=== PATIENT | female | born 1985 | race Hispanic/Latino ===

== ENCOUNTER 2016-06-07 16:13 | Emergency (ER) | payer OTHER ==
[~2016-06-07 16:13] MED LIST: BENA25CA2 PO; PERC5TAB6 PO; no home meds
[2016-06-07] MEDS ORDERED: ACETAMINOPHEN 325 MG TAB As Ordered ONE (18:42)
[2016-06-07] MEDS ORDERED: IBUPROFEN 800 MG TAB As Ordered ONE (18:43)
--- NOTE | 2016-06-07 19:47 | EDDOCDS ---
Physician Documentation [facility] Name: Aide Delgadillo Age: 30 yrs Sex: Female : 1985 Arrival Date: 06/07/2016 Time: 16:13 Bed PD Private MD: Raul Rodriguez Disposition: 06/07/16 19:33 Discharged to Home/Self Care. Impression: Influenza due to other identified influenza virus with other respiratory manifestations - montserrat Salgado - Condition is Stable. - Discharge Instructions: Influenza, Adult, Upper Respiratory Infection, Adult. - Medication Reconciliation, Local Pharmacy Hours form. - Follow up: Raul Rodriguez; When: Call to arrange an appointment; Reason: Recheck today's complaints, Continuance of care. - Problem is new. - Symptoms are unchanged. Historical: - Allergies: No known drug Allergies; - Home Meds: 1. none - PMHx: none; - PSHx: Appendectomy; - Social history: Smoking status: Patient states was never smoker of tobacco. No barriers to communication noted, The patient speaks fluent Malaysian. - Family history: Not pertinent. - : The pt / caregiver states he / she is not on anticoagulants. Home medication list is obtained from the patient. - Exposure Risk Screening:: None identified. 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 2 in. (157.48 cm); Pain 5/10; 18:45 Temp 102(TE); lr2 19:43 BP 108 / 73; Pulse 91; Resp 20; Temp 100.5(O); Pulse Ox 96% on R/A; Pain 3/10; mcp 16:15 Body Mass Index 25.61 (63.50 kg, 157.48 cm) gr2 MDM: 16:47 Strep Screen, Nursing ordered. ef1 16:47 Acetaminophen Tablet 650 mg PO once ordered. ef1 16:47 Ibuprofen 800 mg PO once ordered. ef1 18:39 Obtain sample by nasopharyngeal swab ordered. ms18 18:40 -Influenza A&B Rapid Antigen - Nose Ordered. EDMS 18:53 GATS (NEGATIVE STREP SCREEN) Ordered. EDMS 19:29 -Influenza A&B Rapid Antigen - Nose Reviewed. mo1 19:31 Financial registration complete. ks16 19:33 [facility] Payment Agreement was scanned into [employer] and attached to record. ks16 Administered Medications: 18:47 Drug: Ibuprofen 800 mg [ibuprofen 800 mg tablet (1 tabs)] Route: PO; ms18 18:48 Drug: Acetaminophen 650 mg [acetaminophen 325 mg tablet (2 tabs)] Route: PO; ms18 Signatures: Dispatcher [employer] EDMS Yareli Carlson RN RN kcs Peters, Mary, RN RN mcp Feola, Erica PACarlC PA-C ef1 Eagle Friedman PA PA mo1 Lina Felton RN RN ms18 Lenka Olsen, Reg Reg ks16 The chart was reviewed and I authenticate all verbal orders and agree with the evaluation and treatment provided.Corrections: (The following items were deleted from the chart) 19:09 16:47 Fluid Challenge ordered. ef1 mo1 Attachments: 19:33 [facility] Payment Agreement ks16 MTDD
--- NOTE | 2016-06-07 19:47 | EDDOCDS ---
Nurse's Notes [facility] Name: Aide Delgadillo Age: 30 yrs Sex: Female : 1985 Arrival Date: 06/07/2016 Time: 16:13 Bed PD Private MD: Raul Rodriguez Diagnosis: Influenza due to other identified influenza virus with other respiratory manifestations-montserrat Fitzpatrick Presentation: 06/07 16:26 Presenting complaint: Patient states: since Monday she has not felt good - temp of 104 kcs on Monday - has had a fever on and off since - now with headache, dizziness, body aches, cough and chils. Adult Sepsis Screening: The patient does not have new or worsening altered mentation. Patient's respiratory rate is less than 22. Systolic blood pressure is greater than 100. Patient has a qSOFA score of 0- Negative Sepsis Screen. Suicide/Homicide risk assessment- the patient denies having any suicidal and/or homicidal ideations and does not present with any other emotional, behavioral or mental health complaints. Status: The patient is a dependent. Transition of care: patient was not received from another setting of care. 16:26 Acuity: ALEKSANDR Level 4 kcs 16:26 Method Of Arrival: Walkin/Carried/Asstd kcs Triage Assessment: 16:28 General: Appears comfortable, well developed, well nourished, well groomed, Behavior is kcs cooperative, pleasant. Pain: Location: headache Pain currently is 10 out of 10 on a pain scale. Pt Declines HIV testing. Neurological: Level of Consciousness is awake, alert. Respiratory: Airway is patent Respiratory effort is even, unlabored, Respiratory pattern is regular, symmetrical. Derm: Skin is intact, is healthy with good turgor, Skin is dry, Skin is normal. 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 none - PMHx: none; - PSHx: Appendectomy; - Social history: Smoking status: Patient states was never smoker of tobacco. No barriers to communication noted, The patient speaks fluent Mohawk. - Family history: Not pertinent. - : The pt / caregiver states he / she is not on anticoagulants. Home medication list is obtained from the patient. - Exposure Risk Screening:: None identified. Screenin:45 Screening information is obtained from the patient. Fall risk: No risks identified. mcp Assistance ADL's: requires no assistance with activities of daily living. Abuse/DV Screen: The patient / caregiver reports he/she is: not in a situation that causes fear, pain or injury. Nutritional screening: No deficits noted. Advance Directives: There is no active DNR order. home support is adequate. Assessment: 19:44 General: Appears in no apparent distress, Behavior is cooperative. Pain: Location: all mcp over Pain currently is 3 out of 10 on a pain scale. Quality of pain is described as aching. Neurological: No deficits noted. Respiratory: Airway is patent Respiratory effort is even, unlabored, Reports cough that is persistent. Derm: Skin is pink, warm & dry. Vital Signs: 16:15 BP 113 / 81; Pulse 97; Resp 18 S; Temp 101.8(O); Pulse Ox 100% on R/A; Weight 63.5 kg gr2 (M); Height 5 ft. 2 in. (157.48 cm); Pain 5/10; 18:45 Temp 102(TE); lr2 19:43 BP 108 / 73; Pulse 91; Resp 20; Temp 100.5(O); Pulse Ox 96% on R/A; Pain 3/10; mcp 16:15 Body Mass Index 25.61 (63.50 kg, 157.48 cm) gr2 Vitals: 16:15 Log In Time: June 07, 2016 at 16:15. gr2 ED Course: 16:15 Patient visited by Joe Kendall. gr2 16:15 Raul Rodriguez is Private Physician. gr2 16:15 Patient moved to Waiting gr2 16:18 Patient visited by Joe Kendall. gr2 16:18 Patient moved to Pre RCE gr2 16:27 Triage Initiated kcs 18:34 Patient moved to Triage 3 ms18 18:39 Patient visited by Lina Felton RN. ms18 18:39 Eagle Friedman PA is PHCP. mo1 18:39 Beverly Romero MD is Attending Physician. mo1 18:47 -Influenza A&B Rapid Antigen - Nose Sent. ms18 18:55 GATS (NEGATIVE STREP SCREEN) Sent. ms18 18:58 Patient visited by Eagle Friedman PA. mo1 19:10 Patient moved to PD ms18 19:33 Raul Rodriguez is Referral Physician. mo1 19:33 [facility] Payment Agreement was scanned into [employer] and attached to record. ks16 19:44 The patient / caregiver is instructed regarding the plan of care and ED course. Patient mcp has correct armband on for positive identification. Bed in low position. Call light in reach. 19:45 No IV's were initiated during this patient's visit. No procedures done that require mcp assistance. Administered Medications: 18:47 Drug: Ibuprofen 800 mg [ibuprofen 800 mg tablet (1 tabs)] Route: PO; ms18 18:48 Drug: Acetaminophen 650 mg [acetaminophen 325 mg tablet (2 tabs)] Route: PO; ms18 Order Results: Lab Order: -Influenza A&B Rapid Antigen - Nose; SPEC'M 06/07/16 18:48 Test: INFLUENZA A RAPID SCR by ICA; Value: INFLUENZA A RESULTS NEGATIVE; Status: F Test: INFLUENZA A RAPID SCR by ICA; Value: Comments:; Status: F Test: INFLUENZA B RAPID SCR by ICA; Value: INFLUENZA B RESULTS POSITIVE; Abnormal: Abnormal; Status: F Test Note: ; The Influenza test is a direct rapid immunoassay for the qualitative detection of Influenza viral antigen. Cell culture (Viral Culture) testing should be considered to confirm NEGATIVE results and to assist in detecting other viruses that can provide similar clinical symptoms. Please contact the lab within 24 hours ([phone]) if confirmatory testing is desired. Outcome: 19:33 Discharge ordered by Provider. mo1 19:45 Discharge Assessment: patient administered narcotics - no. The following High Risk [facility] Discharge criteria are identified: None. Discharged to home ambulatory. Condition: stable. Discharge instructions given to patient, Instructed on discharge instructions, follow up and referral plans. medication usage, Demonstrated understanding of instructions, Pt was receptive of discharge instructions/ teaching. No special radiology studies were completed. Property sent home with patient. 19:46 Patient left the ED. [facility] Signatures: Yareli Carslon RN RN kcs Peters, Mary, RN RN [facility] Joe Kendall gr2 Eagle Friedman PA PA mo1 Lina Felton RN RN ms18 Lenka Olsen, Reg Reg ks16 Jessica Cisneros2 MTDD
--- NOTE | 2016-06-09 20:49 | EDDOCDS ---
Physician Documentation [facility] Name: Aide Delgadillo Age: 30 yrs Sex: Female : 1985 Arrival Date: 06/07/2016 Time: 16:13 Bed PD Private MD: Raul Rodriguez Disposition: 06/07/16 19:33 Discharged to Home/Self Care. Impression: Influenza due to other identified influenza virus with other respiratory manifestations - montserrat Salgado - Condition is Stable. - Discharge Instructions: Influenza, Adult, Upper Respiratory Infection, Adult. - Medication Reconciliation, Local Pharmacy Hours form. - Follow up: Raul Rodriguez; When: Call to arrange an appointment; Reason: Recheck today's complaints, Continuance of care. - Problem is new. - Symptoms are unchanged. Historical: - Allergies: No known drug Allergies; - Home Meds: 1. none - PMHx: none; - PSHx: Appendectomy; - Social history: Smoking status: Patient states was never smoker of tobacco. No barriers to communication noted, The patient speaks fluent Tanzanian. - Family history: Not pertinent. - : The pt / caregiver states he / she is not on anticoagulants. Home medication list is obtained from the patient. - Exposure Risk Screening:: None identified. 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 2 in. (157.48 cm); Pain 5/10; 18:45 Temp 102(TE); lr2 19:43 BP 108 / 73; Pulse 91; Resp 20; Temp 100.5(O); Pulse Ox 96% on R/A; Pain 3/10; mcp 16:15 Body Mass Index 25.61 (63.50 kg, 157.48 cm) gr2 MDM: 16:47 Strep Screen, Nursing ordered. ef1 16:47 Acetaminophen Tablet 650 mg PO once ordered. ef1 16:47 Ibuprofen 800 mg PO once ordered. ef1 18:39 Obtain sample by nasopharyngeal swab ordered. ms18 18:40 -Influenza A&B Rapid Antigen - Nose Ordered. EDMS 18:53 GATS (NEGATIVE STREP SCREEN) Ordered. EDMS 19:29 -Influenza A&B Rapid Antigen - Nose Reviewed. mo1 19:31 Financial registration complete. ks16 19:33 [facility] Payment Agreement was scanned into [employer] and attached to record. 06/08 13:48 T-Sheet-- Draft Copy was scanned into [employer] and attached to record. gb Administered Medications: 06/07 18:47 Drug: Ibuprofen 800 mg [ibuprofen 800 mg tablet (1 tabs)] Route: PO; ms18 18:48 Drug: Acetaminophen 650 mg [acetaminophen 325 mg tablet (2 tabs)] Route: PO; ms18 Signatures: Dispatcher [employer] EDMS Yareli Carlson RN RN kcs Peters, Mary, RN RN mcp Barnhardt, Gloria, Reg Reg gb Adamaris Mckeon PACarlC PA-Lynnette ef1 Eagle Friedman PA PA mo1 Lina Felton RN RN ms18 Lenka Olsen, Reg Reg ks16 The chart was reviewed and I authenticate all verbal orders and agree with the evaluation and treatment provided.Corrections: (The following items were deleted from the chart) 19: 16:47 Fluid Challenge ordered. ef1 mo1 Attachments: 19:33 [facility] Payment Agreement 06/08 13:48 T-Sheet-- Draft Copy gb Chart Complete MTDD
--- NOTE | 2016-06-09 20:49 | EDDOCDS ---
Nurse's Notes [facility] Name: Aide Delgadillo Age: 30 yrs Sex: Female : 1985 Arrival Date: 06/07/2016 Time: 16:13 Bed PD Private MD: Raul Rodriguez Diagnosis: Influenza due to other identified influenza virus with other respiratory manifestations-montserrat Fitzpatrick Presentation: 06/07 16:26 Presenting complaint: Patient states: since Monday she has not felt good - temp of 104 kcs on Monday - has had a fever on and off since - now with headache, dizziness, body aches, cough and chils. Adult Sepsis Screening: The patient does not have new or worsening altered mentation. Patient's respiratory rate is less than 22. Systolic blood pressure is greater than 100. Patient has a qSOFA score of 0- Negative Sepsis Screen. Suicide/Homicide risk assessment- the patient denies having any suicidal and/or homicidal ideations and does not present with any other emotional, behavioral or mental health complaints. Status: The patient is a dependent. Transition of care: patient was not received from another setting of care. 16:26 Acuity: ALEKSANDR Level 4 kcs 16:26 Method Of Arrival: Walkin/Carried/Asstd kcs Triage Assessment: 16:28 General: Appears comfortable, well developed, well nourished, well groomed, Behavior is kcs cooperative, pleasant. Pain: Location: headache Pain currently is 10 out of 10 on a pain scale. Pt Declines HIV testing. Neurological: Level of Consciousness is awake, alert. Respiratory: Airway is patent Respiratory effort is even, unlabored, Respiratory pattern is regular, symmetrical. Derm: Skin is intact, is healthy with good turgor, Skin is dry, Skin is normal. 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 none - PMHx: none; - PSHx: Appendectomy; - Social history: Smoking status: Patient states was never smoker of tobacco. No barriers to communication noted, The patient speaks fluent Malay. - Family history: Not pertinent. - : The pt / caregiver states he / she is not on anticoagulants. Home medication list is obtained from the patient. - Exposure Risk Screening:: None identified. Screenin:45 Screening information is obtained from the patient. Fall risk: No risks identified. mcp Assistance ADL's: requires no assistance with activities of daily living. Abuse/DV Screen: The patient / caregiver reports he/she is: not in a situation that causes fear, pain or injury. Nutritional screening: No deficits noted. Advance Directives: There is no active DNR order. home support is adequate. Assessment: 19:44 General: Appears in no apparent distress, Behavior is cooperative. Pain: Location: all mcp over Pain currently is 3 out of 10 on a pain scale. Quality of pain is described as aching. Neurological: No deficits noted. Respiratory: Airway is patent Respiratory effort is even, unlabored, Reports cough that is persistent. Derm: Skin is pink, warm & dry. Vital Signs: 16:15 BP 113 / 81; Pulse 97; Resp 18 S; Temp 101.8(O); Pulse Ox 100% on R/A; Weight 63.5 kg gr2 (M); Height 5 ft. 2 in. (157.48 cm); Pain 5/10; 18:45 Temp 102(TE); lr2 19:43 BP 108 / 73; Pulse 91; Resp 20; Temp 100.5(O); Pulse Ox 96% on R/A; Pain 3/10; mcp 16:15 Body Mass Index 25.61 (63.50 kg, 157.48 cm) gr2 Vitals: 16:15 Log In Time: June 07, 2016 at 16:15. gr2 ED Course: 16:15 Patient visited by Joe Kendall. gr2 16:15 Raul Rodriguez is Private Physician. gr2 16:15 Patient moved to Waiting gr2 16:18 Patient visited by Joe Kendall. gr2 16:18 Patient moved to Pre RCE gr2 16:27 Triage Initiated kcs 18:34 Patient moved to Triage 3 ms18 18:39 Patient visited by Lina Felton RN. ms18 18:39 Eagle Friedman PA is PHCP. mo1 18:39 Beverly Romero MD is Attending Physician. mo1 18:47 -Influenza A&B Rapid Antigen - Nose Sent. ms18 18:55 GATS (NEGATIVE STREP SCREEN) Sent. ms18 18:58 Patient visited by Eagle Friedman PA. mo1 19:10 Patient moved to PD ms18 19:33 Raul Rodriguez is Referral Physician. mo1 19:33 [facility] Payment Agreement was scanned into [employer] and attached to record. ks16 19:44 The patient / caregiver is instructed regarding the plan of care and ED course. Patient mcp has correct armband on for positive identification. Bed in low position. Call light in reach. 19:45 No IV's were initiated during this patient's visit. No procedures done that require mcp assistance. 19:55 Patient name changed from Aide\S\\S\Delgadillo\S\ to Aide\S\ \S\Delgadillo. EDMS 06/08 13:48 T-Sheet-- Draft Copy was scanned into [employer] and attached to record. gb Administered Medications: 06/07 18:47 Drug: Ibuprofen 800 mg [ibuprofen 800 mg tablet (1 tabs)] Route: PO; ms18 18:48 Drug: Acetaminophen 650 mg [acetaminophen 325 mg tablet (2 tabs)] Route: PO; ms18 Order Results: Lab Order: -Influenza A&B Rapid Antigen - Nose; SPEC'M 06/07/16 18:48 Test: INFLUENZA A RAPID SCR by ICA; Value: INFLUENZA A RESULTS NEGATIVE; Status: F Test: INFLUENZA A RAPID SCR by ICA; Value: Comments:; Status: F Test: INFLUENZA B RAPID SCR by ICA; Value: INFLUENZA B RESULTS POSITIVE; Abnormal: Abnormal; Status: F Test Note: ; The Influenza test is a direct rapid immunoassay for the qualitative detection of Influenza viral antigen. Cell culture (Viral Culture) testing should be considered to confirm NEGATIVE results and to assist in detecting other viruses that can provide similar clinical symptoms. Please contact the lab within 24 hours ([phone]) if confirmatory testing is desired. Lab Order: GATS (NEGATIVE STREP SCREEN); SPEC'M 06/07/16 18:52 Test: GATS CULTURE (NEG STREP SCR); Value: GATS RESULT NEGATIVE FOR STREP PYOGENES (GROUP A); Status: F Test: GATS CULTURE (NEG STREP SCR); Value: <EXTERNAL COMMENT eCWMed> FULL REPORT IN LAB NOTES (eCW and Medent).; Status: F Outcome: 19:33 Discharge ordered by Provider. mo1 19:45 Discharge Assessment: patient administered narcotics - no. The following High Risk [facility] Discharge criteria are identified: None. Discharged to home ambulatory. Condition: stable. Discharge instructions given to patient, Instructed on discharge instructions, follow up and referral plans. medication usage, Demonstrated understanding of instructions, Pt was receptive of discharge instructions/ teaching. No special radiology studies were completed. Property sent home with patient. 19:46 Patient left the ED. [facility] Signatures: Dispatcher [employer] EDYareli Mullen RN RN Aixa Cai RN RN [facility] Saima Hou, Reg Reg gb Joe Kendall gr2 Eagle Friedman PA PA mo1 Lina Felton RN RN ms18 Lenka Olsen, Reg Reg ks16 Jessica Cisneros lr2 Chart Complete MTDD
--- NOTE | 2016-06-09 20:49 | EDDOCDS ---
Physician Documentation [facility] Name: Aide Delgadillo Age: 30 yrs Sex: Female : 1985 Arrival Date: 06/07/2016 Time: 16:13 Bed PD Private MD: Raul Rodriguez Disposition: 06/07/16 19:33 Discharged to Home/Self Care. Impression: Influenza due to other identified influenza virus with other respiratory manifestations - montserrat Salgado - Condition is Stable. - Discharge Instructions: Influenza, Adult, Upper Respiratory Infection, Adult. - Medication Reconciliation, Local Pharmacy Hours form. - Follow up: Raul Rodriguez; When: Call to arrange an appointment; Reason: Recheck today's complaints, Continuance of care. - Problem is new. - Symptoms are unchanged. Historical: - Allergies: No known drug Allergies; - Home Meds: 1. none - PMHx: none; - PSHx: Appendectomy; - Social history: Smoking status: Patient states was never smoker of tobacco. No barriers to communication noted, The patient speaks fluent [place]ine[place]. - Family history: Not pertinent. - : The pt / caregiver states he / she is not on anticoagulants. Home medication list is obtained from the patient. - Exposure Risk Screening:: None identified. 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 2 in. (157.48 cm); Pain 5/10; 18:45 Temp 102(TE); lr2 19:43 BP 108 / 73; Pulse 91; Resp 20; Temp 100.5(O); Pulse Ox 96% on R/A; Pain 3/10; mcp 16:15 Body Mass Index 25.61 (63.50 kg, 157.48 cm) gr2 MDM: 16:47 Strep Screen, Nursing ordered. ef1 16:47 Acetaminophen Tablet 650 mg PO once ordered. ef1 16:47 Ibuprofen 800 mg PO once ordered. ef1 18:39 Obtain sample by nasopharyngeal swab ordered. ms18 18:40 -Influenza A&B Rapid Antigen - Nose Ordered. EDMS 18:53 GATS (NEGATIVE STREP SCREEN) Ordered. EDMS 19:29 -Influenza A&B Rapid Antigen - Nose Reviewed. mo1 19:31 Financial registration complete. ks16 19:33 [facility] Payment Agreement was scanned into [email or web address] and attached to record. 06/08 13:48 T-Sheet-- Draft Copy was scanned into [email or web address] and attached to record. gb Administered Medications: 06/07 18:47 Drug: Ibuprofen 800 mg [ibuprofen 800 mg tablet (1 tabs)] Route: PO; ms18 18:48 Drug: Acetaminophen 650 mg [acetaminophen 325 mg tablet (2 tabs)] Route: PO; ms18 Signatures: Dispatcher [employer] EDMS Yareli Carlson RN RN kcs Peters, Mary, RN RN mcp Barnhardt, Gloria, Reg Reg gb Adaamris Mckeon PACarlC PA-Lynnetet ef1 Eagle Friedman PA PA mo1 Lina Felton RN RN ms18 Lenka Olsen, Reg Reg ks16 The chart was reviewed and I authenticate all verbal orders and agree with the evaluation and treatment provided.Corrections: (The following items were deleted from the chart) 19: 16:47 Fluid Challenge ordered. ef1 mo1 Attachments: 19:33 [facility] Payment Agreement 06/08 13:48 T-Sheet-- Draft Copy gb Chart Complete MTDD
== END 2016-06-07 19:46 | disposition home or self-care (01) ==
LOC: M ED 16:13
DX: J10.1 Influenza due to other identified influenza virus with other respiratory manifestations (principal)